=== PATIENT | female | born 1980 | race Caucasian/White ===

== ENCOUNTER 2020-03-03 18:51 | Emergency (ER) | payer OTHER ==
[~2020-03-03] VITALS: Ht 152.4 cm; Wt 52.2 kg
[2020-03-03 19:20] LABS: HEMATOCRIT 41.2 % (37.0-47.0); HEMOGLOBIN 13.8 gm/dL (12.0-15.0); MCH 30.4 pg (26.0-34.0); MCHC 33.4 g/dL (28.0-37.0); MCV 90.9 fL (80.0-100.0); MPV 7.9 fl. (7.2-11.1); NUCLEATED RBCS 0 /100WBC; PLATELET COUNT* 228 thou/uL (150-400); RBC 4.53 mil/uL (4.20-5.00); RDW-CV 12.9 % (10.5-14.5); WBC 11.9 thou/uL (4.0-11.0)
[2020-03-03 19:30] LABS: CALCIUM 8.5 mg/dL (8.5-10.1); CREATININE 0.8 mg/dL (0.6-1.3); POTASSIUM 3.9 mmol/L (3.5-5.1)
[2020-03-03 19:33] LABS: APTT 25.9 Seconds (25.0-31.3); PROTIME 10.6 Seconds (9.20-11.50)
[2020-03-03 19:51] LABS: ABSOLUTE LYMPHOCYTES 0.8 thou/uL (0.8-5.3); ABSOLUTE MONOCYTES 0.5 thou/uL (0.0-1.2); ABSOLUTE NEUTROPHILS 10.6 thou/uL (1.6-8.1); PLATELET ESTIMATE ADEQUATE
[2020-03-03 19:54] LABS: ALBUMIN 4.1 g/dL (3.4-5.0); CK-MB MASS 0.7 ng/mL (<0.5-3.6); MAGNESIUM 1.6 mg/dL (1.8-2.4); TOTAL BILIRUBIN 0.4 mg/dL (<0.1-1.0); TOTAL PROTEIN 7.2 g/dL (6.4-8.2)
[2020-03-03 20:04] VITALS: BP 120/69
--- NOTE | 2020-03-04 14:13 | EKG ---
[place] [address] ELECTROCARDIOGRAM REPORT Name: KIMBERLY ETIENNE Room: [facility]#: [id number] Admission: 03/03/20 Attend Phys: Discharge: 03/03/20 Date of : 84 Date of Service: 03/03/207 Report #: [id number] THIS REPORT FOR: //name// [facility] ED Test Date: 2020-03-03 Test Time: 18:57:19 Pat Name: KIMBERLY ETIENNE Department: Room: Gender: Hospice Care Transitions Coordinator: [place] : 1980 Requested By: Davon Vences Order Number: [id number] MD: Wesley Yanez Measurements Intervals [place] Rate: 78 P: 80 GA: 143 QRS: 28 QRSD: 112 T: 59 QT: 388 QTc: 442 Interpretive Statements Sinus rhythm Borderline intraventricular conduction delay RSR' in V1 or V2, probably normal variant No previous ECG available for comparison Electronically Signed On 03-04-2020 14:13:07 CDT by Wesley Yanez [email or web address] <ELECTRONICALLY SIGNED> By: Wesley Yanez MD, [facility] 03/04/20 1413 1857 185 Wesley Yanez MD, [facility] /EPI
== END 2020-03-03 20:05 | disposition home or self-care (01) ==
LOC: M.ERS 18:51
PROVIDERS: Family Medicine
DX: T63.441A Toxic effect of venom of bees, accidental (unintentional), initial encounter (principal); Y92.89 Other specified places as the place of occurrence of the external cause